=== PATIENT | female | born 1990 | race Caucasian/White ===

== ENCOUNTER 2021-11-30 09:15 | Emergency (ER) | payer OTHER ==
[2021-11-30 09:23] VITALS: BP 113/70
--- NOTE | 2021-11-30 09:47 | Emergency Department Report ---
ED HPI - General Chief complaint: Vaginal Bleeding Stated complaint: 13 WEEKS , VAG BLEED X 4 DAYS Time Seen by Provider: 11/30/21 09:38 Source: patient Mode of arrival: Ambulatory Limitations: No Limitations - History of Present Illness Initial comments: 31-year-old female presents to the emergency room complaining of a 4-day history of vaginal bleeding. She reports she is 13 weeks . States that the bleeding has gotten heavier. She was told to come to the emergency room by her [employer]ED T[employer] REPAIRER. Patient is followed by [facility]. Her last menstrual period was September 06, 2021. She is 1. She denies any pelvic pain or cramping. There is no past medical history she currently takes vitamins and has no known drug allergies. Complaint: vaginal bleeding - Related Data Allergies Allergy/AdvReac Type Severity Reaction Status Date / Time No Known Allergies Allergy Unverified 11/30/21 09:21 ED Review of Systems ROS: Stated complaint: 13 WEEKS , VAG BLEED X 4 DAYS Other details as noted in HPI Comment: All other systems reviewed and negative ED Physical Exam - General Limitations: No Limitations General appearance: alert, in no apparent distress - Head Head exam: Present: atraumatic, normocephalic - Eye Eye exam: Present: normal appearance - ENT ENT exam: Present: mucous membranes moist - Neck Neck exam: Present: normal inspection - Respiratory Respiratory exam: Present: normal lung sounds bilaterally. Absent: respiratory distress - Cardiovascular Cardiovascular Exam: Present: regular rate, normal rhythm. Absent: systolic murmur, diastolic murmur, rubs, gallop - GI/Abdominal GI/Abdominal exam: Present: soft, normal bowel sounds. Absent: distended, tende rness - Extremities Exam Extremities exam: Present: normal inspection - Back Exam Back exam: Present: normal inspection - Neurological Exam Neurological exam: Present: alert, oriented X3 - Psychiatric Psychiatric exam: Present: normal affect, normal mood - Skin Skin exam: Present: warm, dry, intact, normal color. Absent: rash ED Course Vital Signs 11/30/21 09:23 Temperature 98.3 F Pulse Rate 88 Respiratory 16 Rate Blood Pressure 113/70 [Right] O2 Sat by Pulse 99 Oximetry ED Medical Decision Making - Lab Data Result diagrams: 11/30/21 09:50 - Radiology Data Radiology results: report reviewed [facility] [address] [address] Ultrasound Report Signed Patient: KIRTI SUH MR#: [id number] : 1990 Acct:[id number] Age/Sex: 31 / F ADM Date: 11/30/21 Loc: ED Attending Dr: Ordering Physician: JANEE LOMELI Date of Service: 11/30/21 Procedure(s): US OB <= 14 weeks fetus Accession Number(s): [id number] cc: JANEE LOMELI FIRSTTRIME[facility] OBSTETRIC ULTRASOUND HISTORY: Vaginal bleeding during COMPARISON: None. TECHNIQUE: Routine transabdominal OB ultrasound performed. FINDINGS: Uterus: Mildly enlarged measuring 10.8 x 5.8 x 7.5 cm. Gestational Sac: Well-defined oval shape and intrauterine in location. Average diameter measures 5.2 cm which correlates with an 11 week 0 day . Yolk Sac: Not seen Fetus/Embryo: Not seen Embryonic/ cardiac activity: Not seen Ovaries: The right ovary measures 3.4 x 2.1 x 2.3 cm and contains a 2.0 cm simple cyst. The left ovary is unremarkable measuring 2.9 x 1.5 x 1.4 cm. Additional findings: None. IMPRESSION Large empty gestational sac is identified in the endometrial canal correlating with an 11 week 0 day . No pole or yolk sac is demonstrated. This is concerning for a blighted ovum. 2 cm simple right ovarian cyst. Signer Name: Keron Pat Jr, MD Signed: 11/30/2021 10:42 AM Workstation Name: [id number] Transcribed By: TTR Dictated By: KERON PAT JR, MD Electronically Authenticated By: KERON PAT JR, MD Signed Date/Time: 11/30/21 1042 DD/ 1039 TD/TT: - Medical Decision Making 31-year-old female presents to the emergency room complaining of a 4-day history of vaginal bleeding. She reports she is 13 weeks . States that the bleeding has gotten heavier. She was told to come to the emergency room by her [employer] T[employer] REPAIRER. Patient is followed by [facility]. Her last menstrual period was September 06, 2021. She is 1. She denies any pelvic pain or cramping. There is no past medical history she currently takes vitamins and has no known drug allergies. Vaginal bleeding protocol Critical care attestation.: If time is entered above; I have spent that time in minutes in the direct care of this critically ill patient, excluding procedure time. ED Disposition Clinical Impression: Blighted ovum Disposition: 01 HOME / SELF CARE / HOMELESS Is pt being admited?: No Does the pt Need Aspirin: No Condition: Stable Instructions: Blighted Ovum Additional Instructions: Ultrasound shows you have a gestational sac with no embryo. I recommend that you follow-up with your [employer] T[employer] REPAIRER. Your quantitative was 411. Referrals: [facility] [place] [facility] [Other] - 3-5 Days Time of Disposition: 11:24
[2021-11-30 10:23] LABS: Basophils % (Auto) 0.7 % (0.0-1.8); Eosinophils % (Auto) 0.7 % (0.0-4.3); Hematocrit 38.1 % (30.3-42.9); Hemoglobin 12.9 gm/dl (10.1-14.3); Lymphocytes # (Auto) 1.6 K/mm3 (1.2-5.4); Lymphocytes % (Auto) 31.5 % (13.4-35.0); Mean Corpuscular HGB Conc 34 % (30-34); Mean Corpuscular Volume 95 fl (79-97); Monocytes # (Auto) 0.4 K/mm3 (0.0-0.8); Monocytes % (Auto) 7.2 % (0.0-7.3); Platelet Count 214 K/mm3 (140-440); Red Blood Count 4.01 M/mm3 (3.65-5.03); Red Cell Distribution Width 12.9 % (13.2-15.2)
[2021-11-30 10:31] LABS: Bacteria,Urine 1+ /HPF (Negative); Bilirubin,Urine NEG (Negative); Blood,Urine SM (Negative); Color,Urine Yellow (Yellow); Mucus,Urine FEW /HPF; Protein,Urine <15 mg/dL mg/dL (Negative); Urobilinogen,Urine < 2.0 mg/dL (<2.0)
--- NOTE | 2021-11-30 10:47 | Ultrasound Report ---
FIRSTTRIME[facility] OBSTETRIC ULTRASOUND HISTORY: Vaginal bleeding during COMPARISON: None. TECHNIQUE: Routine transabdominal OB ultrasound performed. FINDINGS: Uterus: Mildly enlarged measuring 10.8 x 5.8 x 7.5 cm. Gestational Sac: Well-defined oval shape and intrauterine in location. Average diameter measures 5.2 cm which correlates with an 11 week 0 day . Yolk Sac: Not seen Fetus/Embryo: Not seen Embryonic/ cardiac activity: Not seen Ovaries: The right ovary measures 3.4 x 2.1 x 2.3 cm and contains a 2.0 cm simple cyst. The left ovar y is unremarkable measuring 2.9 x 1.5 x 1.4 cm. Additional findings: None. IMPRESSION Large empty gestational sac is identified in the endometrial canal correlating with an 11 week 0 day . No pole or yolk sac is demonstrated. This is concerning for a blighted ovum. 2 cm simple right ovarian cyst. Signer Name: Keron Pat Jr, MD Signed: 11/30/2021 10:42 AM Workstation Name: [id number]
== END 2021-11-30 12:17 | disposition home or self-care (01) ==
LOC: ED 09:15
DX: O02.0 Blighted ovum and nonhydatidiform mole (principal); O08.9 Unspecified complication following an ectopic and molar pregnancy; Z3A.13 13 weeks gestation of pregnancy
CPT/HCPCS: 36415; 76801; 81001; 84702; 85025; 86900; 86901; 99284

== ENCOUNTER 2022-04-03 11:30 | Emergency (ER) | payer OTHER ==
[2022-04-03 14:01] LABS: Bilirubin,Urine NEG (Negative); Blood,Urine LG (Negative); Color,Urine Straw (Yellow); Mucus,Urine FEW /HPF; Protein,Urine <15 mg/dL mg/dL (Negative); Urobilinogen,Urine < 2.0 mg/dL (<2.0)
[2022-04-03] MEDS ORDERED: ACETAMINOPHEN 500 MG TAB PO ONE (14:03)
[2022-04-03 14:37] LABS: Basophils # (Auto) 0.1 K/mm3 (0.0-0.1); Basophils % (Auto) 0.8 % (0.0-1.8); Eosinophils # (Auto) 0.1 K/mm3 (0.0-0.4); Eosinophils % (Auto) 0.8 % (0.0-4.3); Hematocrit 39.5 % (30.3-42.9); Hemoglobin 13.1 gm/dl (10.1-14.3); Lymphocytes # (Auto) 1.9 K/mm3 (1.2-5.4); Lymphocytes % (Auto) 28.1 % (13.4-35.0); Mean Corpuscular HGB Conc 33 % (30-34); Mean Corpuscular Volume 95 fl (79-97); Monocytes # (Auto) 0.3 K/mm3 (0.0-0.8); Monocytes % (Auto) 5.2 % (0.0-7.3); Platelet Count 187 K/mm3 (140-440); Red Blood Count 4.15 M/mm3 (3.65-5.03); Red Cell Distribution Width 12.4 % (13.2-15.2)
[2022-04-03 14:56] LABS: Blood Urea Nitrogen 13 mg/dL (7-17); Hemolysis Index 7
[2022-04-03 14:58] LABS: BUN/Creatinine Ratio 22
--- NOTE | 2022-04-03 15:26 | Ultrasound Report ---
OB Ultrasound HISTORY: vag bleed in preg. TECHNIQUE: Grayscale and color imaging performed. COMPARISON: OB ultrasound from 11/30/2021 FINDINGS: Uterus measures 8.2 x 3.5 x 4.9 cm with endometrial echocomplex measuring 4 mm. No intraute rine gestational sac identified. Both ovaries appear unremarkable. No pelvic free fluid. IMPRESSION: No intrauterine gestation identified. Nothing acute. Signer Name: Pierre Braden MD Signed: 04/03/2022 3:22 PM Workstation Name: [email or web address]
[2022-04-03] MEDS ORDERED: HYDROcodone/ACETAMINOPHEN 5-325 MG TAB PO ONE (15:33)
--- NOTE | 2022-04-03 15:33 | Emergency Department Report ---
ED Female HPI - General Chief complaint: Vaginal Bleeding Stated complaint: 8WKS /BLEEDING/CRAMPING Time Seen by Provider: 04/03/22 12:57 Source: patient Mode of arrival: Ambulatory Limitations: No Limitations - History of Present Illness Initial comments: Patient is a 31-year-old female that comes to the emergency room with vaginal bleeding in . She does have an REHAB TRAINER that she saw yesterday. She shares this on discharge. She had a beta quant of 1300. Today it is 800 and. Looks like she is miscarrying. Ultrasound shows no intrauterine . This is patient's second . She has miscarried prior. MD Complaint: vaginal bleeding -: Gradual Are you Now?: Yes Last Menstrual Period: 02/12/22 EDC: 11/19/22 Associated Symptoms: denies other symptoms, vaginal bleeding - Related Data Sexually active: Yes : 2 Para: 0 Allergies Allergy/AdvReac Type Severity Reaction Status Date / Time No Known Allergies Allergy Unverified 11/30/21 09:21 ED Review of Systems ROS: Stated complaint: 8WKS /BLEEDING/CRAMPING Other details as noted in HPI Comment: All other systems reviewed and negative ED Past Medical Hx - Past Medical History Previous Medical History?: No - Surgical History Past Surgical History?: No - Family History Family history: no significant - Social History Smoking Status: Never Smoker Substance Use Type: None ED Physical Exam - General Limitations: No Limitations General appearance: alert, in no apparent distress - Head Head exam: Present: atraumatic, normocephalic - Eye Eye exam: Present: normal appearance - ENT ENT exam: Present: mucous membranes moist - Neck Neck exam: Present: normal inspection - Respiratory Respiratory exam: Present: normal lung sounds bilaterally. Absent: respiratory distress - Cardiovascular Cardiovascular Exam: Present: regular rate, normal rhythm. Absent: systolic mur mur, diastolic murmur, rubs, gallop - GI/Abdominal GI/Abdominal exam: Present: soft, normal bowel sounds - Extremities Exam Extremities exam: Present: normal inspection - Back Exam Back exam: Present: normal inspection - Neurological Exam Neurological exam: Present: alert, oriented X3 - Psychiatric Psychiatric exam: Present: normal affect, normal mood - Skin Skin exam: Present: warm, dry, intact, normal color. Absent: rash ED Course Vital Signs 05/25/22 05/25/22 12:50 13:43 Temperature 98.0 F 98.7 F Pulse Rate 88 78 Respiratory 18 20 Rate Blood Pressure 118/78 Blood Pressure 116/68 [Right] O2 Sat by Pulse 99 100 Oximetry ED Medical Decision Making - Lab Data Result diagrams: 04/03/22 14:13 04/03/22 14:13 - Radiology Data Radiology results: report reviewed, image reviewed See report - Medical Decision Making Labs 04/03/22 04/03/22 04/03/22 14:13 14:13 14:13 WBC 6.6 RBC 4.15 Hgb 13.1 Hct 39.5 MCV 95 MCH 32 MCHC 33 RDW 12.4 L Plt Count 187 Lymph % (Auto) 28.1 Stephenson % (Auto) 5.2 Eos % (Auto) 0.8 Baso % (Auto) 0.8 Lymph # (Auto) 1.9 Stephenson # (Auto) 0.3 Eos # (Auto) 0.1 Baso # (Auto) 0.1 Seg Neutrophils % 65.1 Seg Neutrophils # 4.3 Sodium 138 Potassium 3.9 Chloride 102.8 Carbon Dioxide 23 Anion Gap 16 BUN 13 Creatinine 0.6 Estimated GFR > 60 BUN/Creatinine Ratio 22 Glucose 89 Calcium 9.0 HCG, Quant 838.1 H Urine Color Urine Turbidity Urine pH Ur Specific [place] Urine Protein Urine Glucose (UA) Urine Ketones Urine Blood Urine Nitrite Urine Bilirubin Urine Urobilinogen Ur Leukocyte Esterase Urine WBC (Auto) Urine RBC (Auto) U Epithel Cells (Auto) Urine Mucus Blood Type Ord Rhogam Gestat Weeks 04/03/22 04/03/22 14:13 Unknown WBC RBC Hgb Hct MCV MCH MCHC RDW Plt Count Lymph % (Auto) Stephenson % (Auto) Eos % (Auto) Baso % (Auto) Lymph # (Auto) Stephenson # (Auto) Eos # (Auto) Baso # (Auto) Seg Neutrophils % Seg Neutrophils # Sodium Potassium Chloride Carbon Dioxide Anion Gap BUN Creatinine Estimated GFR BUN/Creatinine Ratio Glucose Calcium HCG, Quant Urine Color Straw Urine Turbidity Hazy Urine pH 5.0 Ur Specific [place] 1.017 Urine Protein <15 mg/dl Urine Glucose (UA) Neg Urine Ketones Neg Urine Blood Lg Urine Nitrite Neg Urine Bilirubin Neg Urine Urobilinogen < 2.0 Ur Leukocyte Esterase Neg Urine WBC (Auto) 1.0 Urine RBC (Auto) 131.0 U Epithel Cells (Auto) 1.0 Urine Mucus Few Blood Type O POSITIVE Ord Rhogam Gestat Weeks Rh pos Vital Signs 04/03/22 04/03/22 12:50 13:43 Temperature 98.0 F 98.7 F Pulse Rate 88 78 Respiratory 18 20 Rate Blood Pressure 118/78 Blood Pressure 116/68 [Right] O2 Sat by Pulse 99 100 Oximetry Labs reviewed with and patient. Patient did not divulge all information until discharge. Her beta quant is trending down, therefore, she is likely miscarrying. I have given her her results and she is to follow-up with her REHAB TRAINER in the a.m. She saw him yesterday. Patient discharged home with discharge plan of care including diet, activity, medications and follow-up. - Differential Diagnosis Rule out miscarriage Critical care attestation.: If time is entered above; I have spent that time in minutes in the direct care of this critically ill patient, excluding procedure time. ED Disposition Clinical Impression: Threatened Disposition: HOME / SELF CARE / HOMELESS Is pt being admited?: No Does the pt Need Aspirin: No Condition: Stable Instructions: Threatened Miscarriage Additional Instructions: Motrin or Tylenol for pain Pelvic rest Follow-up with REHAB TRAINER in 48 hours for recheck. Take this paperwork with you Referrals: ROXANNA LINDSEY MD [Staff Physician] - 3-5 Days Time of Disposition: 15:48
[2022-04-03 16:00] VITALS: BP 126/83
== END 2022-04-03 16:04 | disposition home or self-care (01) ==
LOC: ED 11:30
DX: O20.0 Threatened abortion (principal); Z3A.08 8 weeks gestation of pregnancy
CPT/HCPCS: 36415; 76801; 80048; 81001; 84702; 85025; 86900; 86901; 99284